=== PATIENT | male | born 1985 | race American Indian/Alaskan Native ===

== ENCOUNTER 2021-09-21 07:24 | Emergency (ER) | payer OTHER ==
[2021-09-21 08:23] VITALS: BP 145/99
--- NOTE | 2021-09-21 12:33 | Electrocardiograph Report ---
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
== END 2021-09-21 13:43 | disposition left against medical advice (07) ==
LOC: ED 07:24
DX: R10.9 Unspecified abdominal pain (principal); Z53.21 Procedure and treatment not carried out due to patient leaving prior to being seen by health care provider
CPT/HCPCS: 93005